=== PATIENT | male | born 1995 | race African-American/Black ===

== ENCOUNTER 2019-09-15 23:47 | Emergency (ER) | payer OTHER ==
--- NOTE | 2019-09-16 00:26 | RADIOLOGY REPORT (SQ) ---
EXAM DESCRIPTION: XR HAND 3 OR MORE VIEWS COMPLETED DATE/TME: 09/15/2019 23:51 CLINICAL HISTORY: 24 years, Male, 5th finger pain COMPARISON: None. NUMBER OF VIEWS: TECHNIQUE: LIMITATIONS: None. FINDINGS: 3 views of the right hand were obtained. There is fracture involving the base of the distal phalanx of the fifth finger, dorsally, with distraction of the fracture fragment. Mineralization of bone appears normal. IMPRESSION: Fracture of the distal phalanx of the fifth finger. copyright 2010 [employer]- All Rights Reserved
[2019-09-16] MEDS ORDERED: LIDOCAINE 1% INJ-PF (10 MG/ML) 30 ML SDV INJ ONE (02:23)
[2019-09-16] MEDS ORDERED: CEPHALEXIN 500 MG CAPSULE PO ONE (02:24)
--- NOTE | 2019-09-16 02:26 | ER Document Report ---
HPI - HPI Time Seen by Provider: 09/16/19 02:13 Pain Level: 4 Context: Patient is a 24-year-old male that comes emergency department for chief complaint of injury to the right fifth finger. He states he was trying to move a tire iron to get a tire off of the vehicle, he was straining hard and this slipped forward and down. He states he is not exactly sure what he hit his hand on. There is a laceration at the base of the dorsal fifth finger and pain and swelling on the finger. He denies any other injuries. 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 He denies any other injuries or any other complaints. He denies any medical history. - REPRODUCTIVE Reproductive: DENIES: : Past Medical History - General Information source: Patient - Social History Smoking Status: Never Smoker Frequency of alcohol use: None Drug Abuse: None Lives with: Family Family History: Reviewed & Not Pertinent Patient has suicidal ideation: No Patient has homicidal ideation: No - Medical History Medical History: Negative Surgical Hx: Negative - Immunizations Immunizations up to date: Yes Hx Diphtheria, Pertussis, Tetanus Vaccination: Yes Vertical Provider Document - CONSTITUTIONAL General Appearance: WD/WN, No Apparent Distress - HEENT HEENT: Atraumatic, Normocephalic - NECK Neck: Normal Inspection - RESPIRATORY Respiratory: Breath Sounds Normal, No Respiratory Distress - CARDIOVASCULAR Cardiovascular: Regular Rate, Regular Rhythm - GI/ABDOMEN Gastrointestinal: Abdomen Soft, Abdomen Non-Tender - BACK Back: Normal Inspection - MUSCULOSKELETAL/EXTREMETIES Musculoskeletal/Extremeties: MAEW, FROM, Tender - Right fifth digit has tenderness over the DIP area, there is a 1.5 cm irregular laceration over the dorsum of the finger just posterior to the PIP between the PIP and the MCP. Full range of motion of the finger, normal strength against flexion and extension resistance, normal capillary refill and sensation. Normal hand exam otherwise. - NEURO Level of Consciousness: Awake, Alert, Appropriate Motor/Sensory: No Motor Deficit, No Sensory Deficit - DERM Integumentary: Warm, Dry, No Rash Course - Re-evaluation Re-evalutation: No evidence of concerning injury based on patient's exam, appears to be partial- thickness laceration. X-ray does show avulsion fracture of the distal DIP of the fifth digit, this is actually slightly far away from the laceration site, however because of this he was still placed on prophylactic antibiotics. Area was cleaned thoroughly, sutured, protective splint was placed, [place] Discussed return precautions and expectations. Patient states understanding and agreement. - Vital Signs Vital signs: Temp Pulse Resp BP Pulse Ox 98.7 F 87 16 118/61 98 09/15/19 23:54 09/15/19 23:54 09/15/19 23:54 09/15/19 23:54 09/15/19 23:54 Procedures - Laceration/Wound Repair Right fifth digit Wound length (cm): 1.5 Wound's Depth, Shape: Irregular Laceration pre-procedure: Sterile PPE donned, Sterile drapes applied, Shur-Clens applied Anesthetic type: 1% Lidocaine Volume Anesthetic (mLs): 3 Wound explored: Clean, No foreign body removed Irrigated w/ Saline (mLs): 60 Wound Repaired With: Sutures Suture Size/Type: 5:0, Nylon Number of Sutures: 4 Layer Closure?: No Post-procedure wound care: Sterile dressing applied, Splint applied Post-procedure NV exam normal: Yes Complications: No Discharge - Discharge Clinical Impression: Finger laceration Qualifiers: Encounter type: initial encounter Finger: little finger Damage to nail status: without damage Foreign body presence: without foreign body Laterality: right Qualified Code(s): S61.216A - Laceration without foreign body of right little finger without damage to nail, initial encounter Avulsion fracture of distal phalanx of finger Qualifiers: Encounter type: initial encounter Fracture type: closed Qualified Code(s): S62.639A - Displaced fracture of distal phalanx of unspecified finger, initial encounter for closed fracture Condition: Stable Disposition: HOME, SELF-CARE Additional Instructions: The laceration has been repaired. Sutures need to come out in 7 days. There is also an avulsion injury off the base of the bone on the end of the finger. I recommend that you wear the splint, keep the wound clean, you can clean with soap and water, keep clean dressing over the area. Take the antibiotic as prescribed to completion. Take Tylenol and ibuprofen for pain. Follow-up closely with orthopedics for additional evaluation and management. The bone should simply heal with time. Return for any concerning symptoms including developing severe pain, discolored drainage, swelling, redness, fever, or any other concerning symptoms. Prescriptions: Cephalexin Monohydrate [Keflex 500 mg Capsule] 500 mg PO TID 5 Days #15 capsule
[2019-09-16 03:54] VITALS: BP 113/64
== END 2019-09-16 03:48 | disposition home or self-care (01) ==
LOC: ER 23:47
DX: S62.639A Displaced fracture of distal phalanx of unspecified finger, initial encounter for closed fracture (principal); S61.216A Laceration without foreign body of right little finger without damage to nail, initial encounter; W22.09XA Striking against other stationary object, initial encounter
CPT/HCPCS: 99283; 73130; 12001; J3490